=== PATIENT | male | born 1990 | race African-American/Black ===

== ENCOUNTER 2016-07-12 13:45 | Emergency (ER) | payer OTHER ==
[~2016-07-12] VITALS: Ht 198.1 cm; Wt 80.0 kg
[~2016-07-12 13:45] MED LIST: Z.0.NO CURRENT MEDS
[2016-07-12 13:47] VITALS: BP 127/56; PULSE 82; RESP 16; TEMP 97.7; O2SAT 95
[2016-07-12] MEDS ORDERED: IBUP800T23 PO (14:14)
[2016-07-12] MEDS ORDERED: BACT800T5 PO (14:14)
[2016-07-12] MEDS ORDERED: CEPH-460 PO (14:14)
--- NOTE | 2016-07-12 14:16 | PD ---
HPI Chief Complaint: Skin Problem Time Seen by Provider: 14:13 Travel History International Travel<30 days: No Contact w/Intl Traveler<30days: No Traveled to known affect area: No History of Present Illness HPI 25-year-old male presents to the emergency Department with complaint of redness and swelling to his right fifth digit for the last couple days. He says he has a wart in the area and he went to the store to buy a wart remover and the pharmacist told him he needed to have the area evaluated because it looked infected. He denies paresthesias, loss of sensation, decreased range of motion to the affected finger. Denies fever, chills, nausea, vomiting. Has not taken any medications or tried any treatments to relieve these symptoms. No known allergies. No other modifying factors or associated signs and symptoms. PFSH Past Medical History Diminished Hearing: No Social History Alcohol Use: Yes Tobacco Use: No Substance Use: No Allergies-Medications (Allergen,Severity, Reaction): Coded Allergies: No Known Allergies (Unverified , 03/05/15) Reported Meds & Prescriptions Reported Meds & Active Scripts Active Ibuprofen 800 Mg Tab 800 Mg PO Q6HR PRN Bactrim DS (Sulfamethoxazole-Trimethoprim) 800-160 Mg Tab 1 Tab PO BID 10 Days Keflex (Cephalexin) 500 Mg Cap 500 Mg PO Q6H 10 Days Reported No Current Meds (Miscellaneous Medication) Misc Review of Systems Except as stated in HPI: all other systems reviewed are Neg Physical Exam Narrative GENERAL: Well-nourished, well-developed male patient, in no acute distress SKIN: There is an indurated area to the anterior aspect of the right fifth digit over the PIP joint which measures about 1 cm in diameter. It is fluctuant but there is no pointing or drainage. There is a zone of inflammation around it but no lymphangitis. The finger is with full range of motion, sensory intact, and without edema or erythema except to the area of abscess. No sign of septic joint. Wart noted to the same area. HEAD: Atraumatic. Normocephalic. EYES: Pupils equal and round. No scleral icterus. No injection or drainage. ENT: Mucosa pink and moist. Airway patent. NECK: Trachea midline. CARDIOVASCULAR: Regular rate. RESPIRATORY: No accessory muscle use. GASTROINTESTINAL: Flat. MUSCULOSKELETAL: No obvious deformities. No clubbing. No cyanosis. No edema. NEUROLOGICAL: Awake and alert. Oriented 3. No obvious cranial nerve deficits. Motor grossly within normal limits. Normal speech. PSYCHIATRIC: Appropriate mood and affect; insight and judgment normal. Data Data Last Documented VS Vital Signs Date Time Temp Pulse Resp B/P Pulse Ox O2 Delivery O2 Flow Rate FiO2 07/12/16 13:47 97.7 82 16 127/56 95 Room Air Orders Ibuprofen (Motrin) (07/12/16 14:30) Wound Culture And Gram Stain (07/12/16 14:16) MDM Medical Decision Making Medical Screen Exam Complete: Yes Emergency Medical Condition: Yes Medical Record Reviewed: Yes Differential Diagnosis Abscess, infected wart, cellulitis Narrative Course 25-year-old male with a small abscess to the right fifth digit. See my procedure note for abscess incision and drainage. Wound culture pending. Patient is afebrile and nontoxic-appearing. He denies fever, chills, nausea, vomiting. Ibuprofen administered in the ER. Keflex, Bactrim, ibuprofen prescribed for home. Patient verbalizes understanding and agreement with treatment plan. Patient is medically cleared and stable for discharge. Discussed reasons to return to the emergency department. Instructed patient to follow up with primary care provider. Patient agrees with treatment plan. The patients vital signs are stable and the patient is stable for outpatient follow- up and treatment. Patient discharged home, stable and in no acute distress. Procedures Procedure Narrative INCISION AND DRAINAGE OF ABSCESS: The area was prepped and was sterilely draped. An 18-gauge needle was used to make a puncture into the area of the abscess. Cultures were obtained. The abscess was drained. Sterile dressing applied. Diagnosis Primary Impression: Abscess of finger of right hand Referrals: Primary Care Physician Patient Instructions: Abscess (ED), Abscess Follow-up (ED), Cellulitis (ED), General Instructions Departure Forms: School Release, Return to School Date: Jul 13, 2016 Tests/Procedures Additional Instructions: Complete full course of antibiotics Warm compresses to the affected area Keep area clean and dry Ibuprofen or Tylenol as directed and as needed for pain and inflammation Follow-up with primary care provider Return to emergency department immediately with worsening of symptoms Med/Other Pt SpecificInfo: Prescription(s) given Scripts Ibuprofen 800 Mg [id number] Mg PO Q6HR PRN (PAIN) #30 TAB Ref 0 Prov:Rassi,Pamela K [employer]CHNICIAN [employer] 07/12/16 Sulfamethoxazole-Trimethoprim (Bactrim DS)800-160 Mg Tab1 Tab PO BID 10 Days Ref 0 Prov:Pamela Kim 07/12/16 Cephalexin (Keflex)500 Mg [id number] Mg PO Q6H 10 Days Ref 0 Prov:Pamela Kim 07/12/16 Disposition: 01 DISCHARGE HOME Condition: Stable Pamela Kim Jul 12, 2016 14:16
[2016-07-12] MEDS ORDERED: IBUPROFEN 800 MG TAB PO ONE (14:30)
== END 2016-07-12 14:46 | disposition home or self-care (01) ==
LOC: NEPB 13:45
DX: L02.511 Cutaneous abscess of right hand (principal)
CPT/HCPCS: 10060; 87070

== ENCOUNTER 2017-06-26 11:59 | Emergency (ER) | payer OTHER ==
[~2017-06-26 11:59] MED LIST changes: +BACT800T5 PO; +CEPH-460 PO; +IBUP1TAB7 PO
[2017-06-26 12:35] VITALS: BP 117/56; PULSE 54; RESP 14; TEMP 98.1; O2SAT 100
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
[2017-06-26] MEDS ORDERED: CYCL10TA PO (15:00)
[2017-06-26] MEDS ORDERED: NAPR500 PO (15:00)
== END 2017-06-26 15:29 | disposition home or self-care (01) ==
LOC: NEPK 11:59
DX: S16.1XXA Strain of muscle, fascia and tendon at neck level, initial encounter (principal); V49.40XA Driver injured in collision with unspecified motor vehicles in traffic accident, initial encounter
CPT/HCPCS: 99283